=== PATIENT | female | born 1945 | race Two or more races ===

== ENCOUNTER 2024-07-30 11:38 | Outpatient (AMB) | payer OTHER, MEDICAID, SELFPAY ==
--- NOTE | 2024-07-30 12:00 | MHC.OFFWIV ---
Intake Vital Signs 07/30/24 12:01 Height 4 ft 10 in Weight 113 lb 4 oz BMI 23.7 BP 140/60 H Blood Pressure Location Rt brachial Position Sitting Pulse 81 Pulse Source Pulse Oximeter Temp 98.2 F Temp Source Oral Pulse Oximetry (%) 98 Oxygen Delivery Method Room Air Intake Visit Reasons: EP-rt abd pain Intake Note: Patient complains of Right abdominal pain, nausea and vomit. 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 No pain scale given + urinary frequency and urgency + nausea and vomited x 1 episode yesterday Denies hematuria, dysuria Denies similar pain No L sided abdominal pain, diarrhea No chest pain or SOB PFSH Social History Patient Tobacco Use Status: Never used Tobacco Review of Systems Const Denies chills and Denies fever(s) Card Denies chest pain and Denies dyspnea Resp Denies cough and Denies dyspnea GI Reports abdominal pain, Denies constipation, Denies heartburn, Denies diarrhea, Reports nausea and Reports vomiting Denies hematuria, Reports difficulty voiding, Denies dysuria, Reports flank pain, Denies urinary incontinence, Denies urinary hesitancy and Reports other (urinary frequency) Musc Reports back pain, Denies myalgias and Reports other (hx scoliosis) Skin/Breast Denies rash Physical Exam Vital Signs: Last Vital Signs Temp 98.2 F 07/30/24 12:01 Pulse 81 07/30/24 12:01 BP 140/60 H 07/30/24 12:01 Pulse Ox 98 07/30/24 12:01 Oxygen Delivery Method Room Air 07/30/24 12:01 BMI result Body Mass Index 23.7 General: Non-toxic, NAD. Speaking full sentences. Skin: Warm dry throughout. No posterior back, flank or anterior abdomen rashes/vesicular lesions. No ecchymosis. Eye: EOMI HENT: Airway patent. Uvula midline. No pharyngeal erythema or edema. No MANAGER PIPELINE. Mucosal membranes moist Bilateral canals clear. TM non-erythematous, non-bulging. No TM perforation or hemotympanum noted. Respiratory: CTA bilaterally. No wheezes, rales or rhonchi Cardiac: RRR. No murmur ABdomen: No distendion or pulsitile masses. BS present x 4. + TTP R side mid abdomen lateral to umbilicus. No RUQ or RLQ ttp.No CVAT bilaterally. No guarding. No suprapubic ttp. MSK: + scoliosis noted with moderate to severe curvature. No lumbar paravertebral muscle ttp R side on exam. Able to ambulate from chair to examination table. Neurology: Alert. No aphasia or facial droop. Psych: Good mood and affect Results AMB Urinalysis, Automated UA Leukoctes 0 Jacki/uL Last Edit by Mihir Daly Kemi on 07/30/24 12:40 UA Nitrite Negative Last Edit by Mihir Daly [facility] on 07/30/24 12:40 UA Urobilinogen 0 mg/dL Last Edit by Mihir Daly [facility] on 07/30/24 12:40 UA Protein 0 mg/dL Last Edit by Mihir Daly [facility] on 07/30/24 12:40 UA pH 6.0 Last Edit by Mihir Daly [facility] on 07/30/24 12:40 UA Blood 1 Jeronimo/uL Last Edit by Mihir Daly [facility] on 07/30/24 12:40 UA Specific [place] 1.010 Last Edit by Mihir Daly [facility] on 07/30/24 12:40 UA Ketone Negative Last Edit by Mihir Daly Kemi on 07/30/24 12:40 UA Bilirubin 0 mg/dL Last Edit by Mihir Daly [facility] on 07/30/24 12:40 UA Glucose 0 mg/dL Last Edit by Mihir Daly [facility] on 07/30/24 12:40 Results Reviewed Results Reviewed: Laboratory Last Values Urine pH (Auto) 6.0 07/30/24 12:31 Specific [place] (Auto) 1.010 07/30/24 12:31 Urine Protein (Auto) 0 mg/dL 07/30/24 12:31 Glucose (UA)(Auto) 0 mg/dL 07/30/24 12:31 Urine Ketones (Auto) Negative 07/30/24 12:31 Urine Blood (Auto) 1 Jeronimo/uL 07/30/24 12:31 Urine Nitrite (Auto) Negative 07/30/24 12:31 Urine Bilirubin (Auto) 0 mg/dL 07/30/24 12:31 Urine Urobilinogen (Auto) 0 mg/dL 07/30/24 12:31 Leukocyte Esterase (Auto) 0 Jacki/uL 07/30/24 12:31 Assessment & Plan Assessment & Plan (1) Abdominal pain: Code(s): R10.9 - Unspecified abdominal pain Qualifiers: Abdominal location: unspecified location Qualified Code(s): R10.9 - Unspecified abdominal pain Plan: Patient seen and evaluated. U/a: No infection but + blood Due to current symptoms will send to ER for r/o stone. Expect called to [place] [facility] Pt's son will bring her to [facility] for evaluation Patient gave verbal understanding and had no additional questions or concerns at time of discharge All questions answered Orders: Orders AMB Urinalysis Automated Today Z13.9 - Encounter for screening, unspecified Coding Level of Care Code Est Pt Level 3 (16724) Diagnoses Abdominal pain, unspecified abdominal location R10.9 Abdominal location: unspecified location
[2024-07-30 12:01] VITALS: BP 140/60; PULSE 81; TEMP 36.8; O2SAT 98; BMI 23.7
== END 2024-07-30 13:13 | disposition home or self-care (01) ==
PROVIDERS: PCP Internal Medicine; Visit Provider Physician Assistant
DX: R10.9 Unspecified abdominal pain (principal); Z13.9 Encounter for screening, unspecified

== ENCOUNTER → 2024-07-30 11:38 | Outpatient (BNVA) | payer OTHER, MEDICAID, SELFPAY | PROVIDERS: PCP Internal Medicine; Visit Provider Physician Assistant | DX: R10.9 Unspecified abdominal pain (principal) | CPT/HCPCS: 81003 ==

== ENCOUNTER 2024-07-30 14:40 | Emergency (ER) | payer OTHER, MEDICAID, SELFPAY ==
--- NOTE | ~2024-07-30 | CT_ITS ---
EXAMINATION: CT ABDOMEN AND PELVIS WITHOUT CONTRAST CLINICAL INFORMATION: Right-sided flank pain, concern for stone. COMPARISON: None available. TECHNIQUE: Multidetector volumetric imaging was performed from the superior aspect of the liver through the pubic symphysis. Sagittal and coronal reformatted images were obtained on the technologist's workstation. This CT examination was performed using dose optimization techniques as appropriate, variously including the following: *Automated exposure control *Adjustment of mA and/or kV according to patient size (this includes techniques or standardized protocols for targeted exams where dose is matched to indication/reason for exam; i.e. extremities or head) *Use of iterative reconstruction technique FINDINGS: LUNG BASES: Mild linear scarring or atelectasis noted in the left greater than right lower lobes. There are no effusions. Heart size is top normal. Minimal coronary calcification. No pericardial effusion. Suspect a small type I hiatus hernia at the GE junction. LIVER, GALLBLADDER, AND BILIARY TREE: The unenhanced liver is normal in size, shape, and attenuation. No focal hepatic lesion or biliary ductal dilatation is present. The gallbladder is unremarkable with no evidence of radiopaque gallstones, gallbladder wall thickening, or obvious pericholecystic inflammatory changes. PANCREAS: Unremarkable. SPLEEN: Unremarkable. ADRENAL GLANDS: Unremarkable. KIDNEYS AND URETERS: The kidneys are normal in size, shape, and attenuation. No hydronephrosis, hydroureter, or calculi seen. No perinephric stranding. 2.8 cm simple cyst arising from the midpole of the left kidney ventrally. BLADDER: Unremarkable. Distal ureters are normal. GASTROINTESTINAL TRACT: The small and large bowel are unremarkable. The retrocecal appendix is unremarkable. ABDOMINAL WALL: No significant hernia is appreciated. LYMPH NODES: None enlarged by size criteria. VASCULAR: There is mild calcific atheromatous disease of the aorta and iliac arteries. There is no aneurysm. PELVIC VISCERA: There has been a hysterectomy. There are no adnexal masses. OSSEOUS STRUCTURES: There is a moderate to severe levoconvex thoracolumbar scoliosis with a rotatory component. There is advanced spondylosis throughout the spine. There are no acute bony abnormalities. CT/CT abdomen pelvis wo IV con IMPRESSION: 1. There are no acute findings in the abdomen or pelvis. There is no urological calculus or obstruction present. 2. Ancillary findings as discussed. Electronically signed by: Zander Kelly MD 07/30/2024 04:31 PM EDT RP
--- NOTE | 2024-07-30 14:46 | ED_ITS ---
HPI - General Adult General Chief complaint: Urogenital-Female Stated complaint: Kidney stones? Time Seen by Provider: 07/30/24 15:52 Source: patient and family (patient's son) Mode of arrival: ambulatory Limitations: no limitations History of Present Illness ED Provider: Milena Sanchez PA-C HPI narrative: Patient is a 79 year old assigned female at with a history of hysterectomy and scoliosis presenting to the emergency department today with right sided abdominal pain and right sided flank pain. Patient states that over the last day she has had right sided flank pain that has now radiated into her right abdomen. Patient states that she had 1 episode of nausea and 1 episode of vomiting yesterday. Patient denies any dizziness, lightheadedness, fever, chills, blurry vision, double vision, loss of vision, chest pain, difficulty breathing, shortness of breath, back pain, night sweats, pain with urination, increased urinary frequency, increased urinary urgency, blood in her urine or stool, syncope or a near syncopal episode, recent trauma or falls, bowel incontinence, bladder incontinence, or any other complaints at this time. Patient states that she is having normal bowel movements. Onset (ago): day(s) (1) Location: back, abdomen and right Radiation: abdomen (from back) Relieving factors: none Exacerbating factors: none Treatments prior to arrival: none Related Data Home Medications ?Medication ?Instructions ?Recorded ?Confirmed No Known Home Meds 07/30/24 07/30/24 Allergies Allergy/AdvReac Type Severity Reaction Status Date / Time No Known Allergies Allergy Verified 07/30/24 14:48 [No Known Allergies*] Review of Systems 2 Constitutional: Constitutional: Reports no additional constitutional complaints, Denies chills, Denies fever(s) and Denies night sweats Eyes: Eyes: Reports no additional eye complaints, Denies blurry vision, Denies change in vision, Denies diplopia, Denies eye discharge, Denies loss of vision and Denies eye pain ENT: Denies dizziness Cardiovascular: Cardiovascular: Reports no additional cardiovascular complaints, Denies chest pain, Denies lightheadedness, Denies Loss of Consciousness and Denies dyspnea Respiratory: Respiratory: Reports no additional respiratory complaints and Denies dyspnea Gastrointestinal: Gastrointestinal: Reports no additional gastrointestinal complaints, Reports abdominal pain (right sided), Denies melena, Denies hematochezia, Denies change in bowel habits and Denies change in stool character Genitourinary: Genitourinary: Denies hematuria, Denies urinary frequency, Denies dysuria, Reports flank pain (right sided), Denies urinary incontinence, Denies urinary hesitancy and Denies urinary urgency Musculoskeletal: Musculoskeletal: Reports no additional musculoskeletal complaints, Denies numbness and Denies tingling Comments: right sided back pain that radiates into the right flank and right abdomen Neurologic: Denies dizziness, Denies loss of vision, Denies numbness and Denies tingling Psychiatric: Psychiatric: Reports no additional psychiatric complaints Endocrine: Endocrine: Reports no additional endocrine complaints Hematologic/Lymphatic: Hematologic/Lymphatic: Reports no additional hematologic/lymphatic complaints Allergic/Immunologic: Allergic/Immunologic: Reports no additional allergic/immunologic complaints PMFSH Past Medical History Attestation statement: The following information was validated with the patient. (all information validated with the patient's son) Source: old records reviewed, obtained from family (patient's son provided additional history and confirmed the history provided by the patient. ) and nursing notes reviewed Social History Social History Patient Tobacco Use Status: Never used Tobacco Smoked in Last 30 Days: No Use of substances other than those prescribed or required for medical reasons: No Advance Directives: No Advance Directives Information Provided: Yes Do you have a plan to hurt others: No Plan Patient : No Physical Exam ED Vital Signs: Vital Signs - 24 hr 07/30/24 14:47 07/30/24 16:48 Temperature 98 F 98.2 F Pulse Rate 80 77 Respiratory Rate 18 18 Blood Pressure 170/71 H 140/93 H Pulse Oximetry 98 98 Oxygen Delivery Method Room Air Room Air BMI result Body Mass Index 21.7 Const General: cooperative, no acute distress, alert and awake Nutritional Appearance: well nourished Orientation/consciousness: patient oriented x3 HENMT Head: Yes normal to inspection and Yes atraumatic Ears: hearing grossly normal bilaterally and external ears normal General nose exam: Normal external nose present, no nasal discharge noted and no epistaxis Face and sinus: Yes normal facial exam, No abrasion and No laceration Mouth: Normal oral and palatal mucosa present, no drooling and no muffled voice Eyes General: appearance normal, both eyes and all related structures Periorbital: periorbital findings normal Eyelids: Yes eyelids normal Conjunctivae: conjunctivae normal Pupils: Equal, round and reactive pupils present EOM: EOMs intact bilaterally Neck Neck: Yes normal visual inspection, Yes full ROM and Yes no lymphadenopathy Resp Effort & Inspection: normal respiratory effort and able to speak in complete sentences Neuro General: patient oriented x3, moves all extremities and CN's II-XI intact bilaterally Cranial nerves: Yes Equal, round and reactive pupils present Cognition (Neuro): normal cognition Extrem General: Yes normal to inspection, Yes full ROM and Yes capillary refill normal Psych Appearance: grossly normal Mental Status: mental status grossly normal Affect: normal affect Attitude: cooperative Thought process: Normal thought process present Thought content: Normal thought content present Insight: Good insight present (Psych) Course Course Course Narrative: This is a Rapid Medical Examination (RME) performed by Leah Poon PA-C in triage. Full HPI, ROS, assessment and treatment plan per primary provider in the Main ED. 07/30/24 0788 [place] Villavicencio Hx: 79 yo female here from walk in clinic for eval of right sided abd pain since yesterday w/ occasional radiation to right flank. surgical hx includes total hysterectomy. PE/vitals: well appearing, no cvat, abd soft, ND, mildly tender to palpation of periumbilical to right lower quadrant guarding. Plan: labs/UA Medical Decision Making Medical Decision Making [facility] Narrative: Patient is a 79 year old assigned female at with a history of hysterectomy and scoliosis presenting to the emergency department today with right sided abdominal pain and right sided flank pain. Patient's physical exam was unremarkable. Patient's blood work was unremarkable. Patient's urine showed no acute process. Patient's CT abd/pelvis showed no acute process. I explained my physical exam findings as well as all test results to the patient and the patient's son. I answered all questions asked by the patient and the patient's son. Patient able to tolerate PO while in the department. Patient non-toxic appearing, afebrile, normal vital signs. Patient's clinical presentation is most consistent with right sided abdominal pain of unknown etiology. I stressed the importance of the patient taking her medication as directed (either prescribed or as the over the counter packaging recommends). I stressed the importance of the patient following up with her primary care provider. I stressed the importance of the patient returning to the emergency department immediately if her symptoms were to worsen or if she were to develop any dizziness, shortness of breath, difficulty breathing, chest pain, blurry vision, loss of vision, nausea, vomiting, fever, chills, back pain, or any other complaints. Patient and the patient's son verbalized agreement and understanding with this treatment plan and discharge. Differential Diagnosis Differential Diagnoses: The differential diagnosis associated with the presentation includes Abdominal pain Appendicitis UTI Diverticulitis Renal calculi Admission/Observation Consideration of admission/observation: Escalation of care including admission/observation considered Patient would have been admitted to the hospital had her work up had any findings where hospital admission was appropriate and her clinical presentation warranted hospital admission. Lab Data [facility] Lab Attestation statement: I reviewed the patient's lab results. My interpretation of these results are in the [facility] Rationale portion of this note. 07/30/24 15:00 07/30/24 15:01 Labs: Lab Results 07/30/24 07/30/24 Range/Units 15:00 15:01 WBC 7.1 (4.8-10.8) X10*3/uL RBC 4.16 L (4.20-5.50) X10*6/uL Hgb 12.8 (12.0-16.0) g/dl Hct 38.1 (37.0-47.0) % MCV 91.6 (80.0-98.0) fL MCH 30.8 (27.0-33.0) pg MCHC 33.6 (31.0-35.0) g/dl RDW 13.1 (11.0-16.0) % Plt Count 300 (160-400) X10*3/uL MPV 9.3 L (9.4-12.3) fL Immature Gran % (Auto) 0.1 (0.0-0.4) % Neut % (Auto) 52.3 (45-73) % Lymph % (Auto) 37.3 (20-40) % [place] % (Auto) 6.9 (2-11) % Eos % (Auto) 2.8 (0-4) % Baso % (Auto) 0.6 (0-2) % Lymph # (Auto) 2.6 (1.2-4.9) X10*3/uL [place] # (Auto) 0.5 (0.1-1.2) X10*3/uL Eos # (Auto) 0.2 (0.0-0.4) X10*3/uL Baso # (Auto) 0.0 (0.0-0.2) X10*3/uL Abs Immat Gran (auto) 0.01 (0.00-0.03) X10*3/uL Absolute Neuts (auto) 3.7 (2.0-8.3) x10*3/uL Absolute Nucleated RBC 0.000 (0.0-0.012) X10*3/uL Nucleated RBC % (auto) 0.0 (0.0-0.2) /100WBC Sodium 140 (135-145) mmol/L Potassium 3.8 (3.3-5.1) mmol/L Chloride 108 (96-108) mmol/L Carbon Dioxide 25 (22-29) mmol/L Anion Gap 11 L (12-20) BUN 9 (9-16) mg/dL Creatinine 0.76 (0.5-1.4) mg/dL Estim Creat Clear Calc 44.5 Estimated GFR > 60 Random Glucose 101 (60-115) mg/dL Calcium 9.1 (8.4-10.2) mg/dL Magnesium 2.2 (1.6-2.6) mg/dL Total Bilirubin 0.4 (0.0-1.0) mg/dL AST 26 (5-31) U/L ALT 17 (0-31) U/L Alkaline Phosphatase 122 H (39-117) U/L Total Protein 7.8 (6.5-8.0) g/dL Albumin 3.8 (3.5-5.0) g/dL Lipase 28 (8-78) U/L Urine Color Yellow Urine Appearance Clear Urine pH 6.0 (5.0-9.0) Ur Specific [place] 1.010 (1.005-1.025) Urine Protein Negative (Neg-Trace) mg/dL Urine Glucose (UA) Negative (Negative) mg/dL Urine Ketones Negative (Negative) mg/dL Urine Blood Negative (Negative) Urine Nitrite Negative (Negative) Ur Leukocyte Esterase Negative (Negative) Independent Interpretation I performed an independent interpretation of an: CT Scan Interpretation: My interpretation is in agreement with the radiologist's impression of this imaging study. L Report Number: [id number]: Total DLP = 354.00 mGy-cm EXAMINATION: CT ABDOMEN AND PELVIS WITHOUT CONTRAST CLINICAL INFORMATION: Right-sided flank pain, concern for stone. COMPARISON: None available. TECHNIQUE: Multidetector volumetric imaging was performed from the superior aspect of the liver through the pubic symphysis. Sagittal and coronal reformatted images were obtained on the technologist's workstation. This CT examination was performed using dose optimization techniques as appropriate, variously including the following: *Automated exposure control *Adjustment of mA and/or kV according to patient size (this includes techniques or standardized protocols for targeted exams where dose is matched to indication/reason for exam; i.e. extremities or head) *Use of iterative reconstruction technique FINDINGS: LUNG BASES: Mild linear scarring or atelectasis noted in the left greater than right lower lobes. There are no effusions. Heart size is top normal. Minimal coronary calcification. No pericardial effusion. Suspect a small type I hiatus hernia at the GE junction. LIVER, GALLBLADDER, AND BILIARY TREE: The unenhanced liver is normal in size, shape, and attenuation. No focal hepatic lesion or biliary ductal dilatation is present. The gallbladder is unremarkable with no evidence of radiopaque gallstones, gallbladder wall thickening, or obvious pericholecystic inflammatory changes. PANCREAS: Unremarkable. SPLEEN: Unremarkable. ADRENAL GLANDS: Unremarkable. KIDNEYS AND URETERS: The kidneys are normal in size, shape, and attenuation. No hydronephrosis, hydroureter, or calculi seen. No perinephric stranding. 2.8 cm simple cyst arising from the midpole of the left kidney ventrally. BLADDER: Unremarkable. Distal ureters are normal. GASTROINTESTINAL TRACT: The small and large bowel are unremarkable. The retrocecal appendix is unremarkable. ABDOMINAL WALL: No significant hernia is appreciated. LYMPH NODES: None enlarged by size criteria. VASCULAR: There is mild calcific atheromatous disease of the aorta and iliac arteries. There is no aneurysm. PELVIC VISCERA: There has been a hysterectomy. There are no adnexal masses. OSSEOUS STRUCTURES: There is a moderate to severe levoconvex thoracolumbar scoliosis with a rotatory component. There is advanced spondylosis throughout the spine. There are no acute bony abnormalities. CT/CT abdomen pelvis wo IV con IMPRESSION: 1. There are no acute findings in the abdomen or pelvis. There is no urological calculus or obstruction present. 2. Ancillary findings as discussed. Electronically signed by: Zander Kelly MD 07/30/2024 04:31 PM EDT RP Dictated By: Zander Kelly MD Signed By: Electronically signed by Zander Kelly MD 07/30/24 3054 Radiology Impression Discussion of test interpretation with radiology: I have reviewed the radiologist's reading. Independent Historian Clinical information obtained from an independent historian. History obtained from or confirmed by: Other (patient's son provided additional history and confirmed the history provided by the patient. ) Discharge Plan Discharge Clinical Impression: Abdominal pain Qualifiers: Abdominal location: unspecified location Qualified Code(s): R10.9 - Unspecified abdominal pain Patient Disposition: Home, Self-Care Instructions: Abdominal Pain (ED) Additional Instructions: Your work up today was reassuring there is no emergent cause for your symptoms. Your CT scan showed no evidence of any emergent process, your lab work showed no abnormalities, and your urine was not infected or had any abnormalities. Orantes trabajo de hoy fue tranquilizador no hay causa emergente para shree s?ntomas. Orantes tomograf?a computarizada no mostr? evidencia de jayla?n proceso emergente, shree an?lisis de laboratorio no mostraron anormalidades, y orantes orina no estaba infectada o ten?a alguna anormalidad. Follow up with your primary care provider. Return to the emergency department immediately if your symptoms worsen or if you develop any dizziness, shortness of breath, difficulty breathing, chest pain, blurry vision, loss of vision, nausea, vomiting, abdominal pain, fever, chills, back pain, or any other complaints. Liliane?seguimiento?con orantes m?dico de atenci?n primaria. Acuda inmediatamente al servicio de urgencias si shree s?ntomas empeoran o si presenta falta de aliento, dificultad para respirar, dolor tor?cico, mareos, aturdimiento, dolor de espalda, dolor abdominal, fiebre, escalofr?os o cualquier otro s?ntoma. Please see the information below about our Patient Portal. If you are not yet enrolled in the [facility] Patient Portal, you will receive an enrollment email invitation following your visit to any [facility] care setting. You may also self-enroll in the Patient Portal by visiting our website: [email or web address] The following information is required to access the Patient Portal: - Your [facility] Medical Record Number - Your personal home email address (must match what is in your electronic medical record, Registration staff can assist with this) - Name - Date of Capabilities of the Patient Portal: - Message some providers - View upcoming appointments - Access your health summary, medical history, and visit history - View current conditions and allergies - View procedure and lab results - View your medications, including guidelines, side effects, and precautions - Complete pre-appointment questionnaires requested by your provider - Ready summary reports of your office visits and procedures To access the Patient Portal Mobile Burt, follow these directions: - Search [employer] in the Burt Store or Custora Store - Download the Burt - Search for [facility] - Enter your login/password Portal del paciente Si usted no esta inscrito en el portal de pacientes de [facility], recibira blu invitacion de inscripcion despues de orantes visita al [facility] o al [facility] via correo electronico. Tambien puede inscribirse voluntariamente en el portal de pacientes visitando nuestra pagina web: [email or web address] [email or web address] Business [email or web address].General Sentiment/portal La siguiente informacion sera requerida para acceder al portal: - Orantes ginette de historia medica de [facility] - Orantes direccion de correo electronico personal - Nombre - Fecha de nacimiento Capacidades: Las siguientes capacidades estan disponibles en el portal de pacientes: - Enviar mensajes a algunos doctores - Verificar proximas citas - Acceso a orantes historial de reynold, registro medico e historial de visitas - Kwame las condiciones actuales y alergias wkame procedimientos y resultados del laboratorio - Kwame shree medicamentos, incluyendo las pautas - Efectos secundarios y precauciones - Completar o llenar formularios / cuestionarios de - Citas solicitadas por orantes doctor - Leer los resumenes de reportes medicos de shree visitas y procedimientos [place] acceder a la aplicacion movil: - [employer] [facility] en la Burt Store o [employer] Navitell Store - Descargue la aplicacion - [facility] - Ingrese orantes nombre de usuario / Contrasena Prescriptions: No Action No Known Home Meds Referrals: Rosie Calvillo MD [Primary Care Provider] - Print Language: Kenyan
[2024-07-30 14:47] VITALS: BP 170/71; PULSE 80; RESP 18; TEMP 36.6; O2SAT 98; BMI 21.7
[2024-07-30 15:06] LABS: MANUAL DIFF FLAG NO
[2024-07-30 15:07] LABS: Basophils Percent Auto 0.6 % (0-2); Eosinophils Absolute Auto 0.2 X10*3/uL (0.0-0.4); Eosinophils Percent Auto 2.8 % (0-4); Hematocrit 38.1 % (37.0-47.0); Hemoglobin 12.8 g/dl (12.0-16.0); Imm Gran Abs Auto 0.01 X10*3/uL (0.00-0.03); Imm Gran Pct Auto 0.1 % (0.0-0.4); Lymphocytes Absolute Auto 2.6 X10*3/uL (1.2-4.9); Lymphocytes Percent Auto 37.3 % (20-40); Mean Corpuscular HGB Conc 33.6 g/dl (31.0-35.0); Mean Corpuscular Hemoglobin 30.8 pg (27.0-33.0); Mean Corpuscular Volume 91.6 fL (80.0-98.0); Mean Platelet Volume 9.3 fL (9.4-12.3); Monocytes Absolute Auto 0.5 X10*3/uL (0.1-1.2); Monocytes Percent Auto 6.9 % (2-11); Neutrophils Absolute Auto 3.7 x10*3/uL (2.0-8.3); Neutrophils Percent Auto 52.3 % (45-73); Platelet Count 300 X10*3/uL (160-400); Red Blood Count 4.16 X10*6/uL (4.20-5.50); Red Cell Distribution Width 13.1 % (11.0-16.0); White Blood Count 7.1 X10*3/uL (4.8-10.8)
[2024-07-30 15:13] LABS: Appearance Urine Clear; Color Urine Yellow; Glucose Urine UA Negative (Negative); Leukocyte Esterase Urine Negative (Negative); Nitrite Urine Negative (Negative); Urine Blood Negative (Negative); Urine Ketones Negative (Negative); Urine Protein Negative (Neg-Trace)
[2024-07-30 15:21] LABS: Alanine Aminotransferase 17 U/L (0-31); Albumin Level 3.8 g/dL (3.5-5.0); Alkaline Phosphatase 122 U/L (39-117); Anion Gap 11 (12-20); Aspartate Amino Transferase 26 U/L (5-31); Bilirubin Total 0.4 mg/dL (0.0-1.0); Blood Urea Nitrogen 9 mg/dL (9-16); Calcium 9.1 mg/dL (8.4-10.2); Carbon Dioxide 25 mmol/L (22-29); Chloride 108 mmol/L (96-108); Creatinine Clr Calc Pharmacy 44.5; Estimated Glomerular Filt Rate > 60; Glucose Random 101 mg/dL (60-115); Lipase 28 U/L (8-78); Magnesium 2.2 mg/dL (1.6-2.6); Potassium 3.8 mmol/L (3.3-5.1); Sodium 140 mmol/L (135-145); Total Protein 7.8 g/dL (6.5-8.0)
[2024-07-30 16:48] VITALS: BP 140/93; PULSE 77; RESP 18; TEMP 36.8; O2SAT 98
[2024-07-30] MEDS: Ketorolac Tromethamine 15 MG/ML VIAL IM (16:55)
[2024-07-30 17:03] VITALS: BP 140/93; PULSE 77; RESP 20; TEMP 36.8; O2SAT 98
== END 2024-07-30 17:04 | disposition home or self-care (01) ==
PROVIDERS: Physician Assistant Medical; Emergency Provider Emergency Medicine Emergency Medical Services; PCP Internal Medicine
DX: R10.9 Unspecified abdominal pain (principal)
CPT/HCPCS: 36415; 74176; 80053; 81003; 83690; 83735; 85025; 96372; 99284; J1885

== ENCOUNTER → 2024-07-30 16:02 | Outpatient (BNV) | payer OTHER, MEDICAID, SELFPAY | PROVIDERS: Emergency Provider Emergency Medicine Emergency Medical Services; PCP Internal Medicine; Visit Provider Radiology Diagnostic Radiology | DX: R10.9 Unspecified abdominal pain (principal) | CPT/HCPCS: 74176 ==